=== PATIENT | male | born 1965 | race Asian ===

== ENCOUNTER → 2017-03-02 | Outpatient (CLI) | payer OTHER | END | disposition home or self-care (01) | LOC: LAB 07:25 | PROVIDERS: ATTEND Internal Medicine | DX: E04.1 Nontoxic single thyroid nodule (principal); E78.4 Other hyperlipidemia; I12.9 Hypertensive chronic kidney disease with stage 1 through stage 4 chronic kidney disease, or unspecified chronic kidney disease; N18.9 Chronic kidney disease, unspecified; R73.01 Impaired fasting glucose | CPT/HCPCS: 36415; 80061; 82947; 83036; 84443; 86376; 86800 ==

== ENCOUNTER → 2017-05-10 | Outpatient (CLI) | payer OTHER ==
[2017-05-10 08:16] LABS: ASPARTATE AMINO TRANSFERASE 26 U/L (15-37); BLOOD UREA NITROGEN 17 mg/dL (7-18)
== END | disposition home or self-care (01) ==
LOC: LAB 07:34
PROVIDERS: ATTEND Internal Medicine Nephrology
DX: I12.9 Hypertensive chronic kidney disease with stage 1 through stage 4 chronic kidney disease, or unspecified chronic kidney disease (principal); N18.2 Chronic kidney disease, stage 2 (mild); I25.10 Atherosclerotic heart disease of native coronary artery without angina pectoris; M10.9 Gout, unspecified
CPT/HCPCS: 36415; 80053; 80061; 81003; 82306; 82570; 83735; 83970; 84100; 84156; 84550; 85025

== ENCOUNTER → 2017-12-27 | Outpatient (CLI) | payer OTHER ==
[2017-12-27 09:08] LABS: BASOPHILS # (AUTO) 0.03 x10^3/uL (0-0.1); BASOPHILS % (AUTO) 0 % (0-1); EOSINOPHILS # (AUTO) 0.05 x10^3/uL (0-0.4); EOSINOPHILS % (AUTO) 1 % (1-7); LYMPHOCYTES # (AUTO) 2.68 x10^3/uL (1-3.4); LYMPHOCYTES % (AUTO) 43 % (22-44); MD NO; MEAN CORPUSCULAR HEMOGLOBIN 30.9 pg (27.5-34.5); MEAN CORPUSCULAR HGB CONC 34.1 g/dL (33.2-36.2); MEAN CORPUSCULAR VOLUME 90.8 fL (81-97); MEAN PLATELET VOLUME 7.3 fL (7.4-10.4); MONOCYTES # (AUTO) 0.53 x10^3/uL (0.2-0.8); MONOCYTES % (AUTO) 9 % (2-9); NEUTROPHILS % (AUTO) 47 % (42-75); PLATELET COUNT 213 x10^3/uL (130-400); RED BLOOD COUNT 5.57 x10^6/uL (4.38-5.82); RED CELL DISTRIBUTION WIDTH 12.6 % (9.4-14.8)
[2017-12-27 09:15] LABS: ALANINE AMINOTRANSFERASE 52 U/L (12-78); ALBUMIN 3.9 g/dL (3.4-5.0); ANION GAP 7 mmol/L (5-15); CALCIUM 8.5 mg/dL (8.5-10.1); CHLORIDE 106 mmol/L (98-107); CREATININE 1.37 mg/dL (0.7-1.3)
[2017-12-27 09:17] LABS: ALKALINE PHOSPHATASE 75 U/L (45-117); BILIRUBIN,TOTAL 0.5 mg/dL (0.2-1.0); CHOLESTEROL, TOTAL 135 mg/dL (140-239); HDL CHOL % 33 % (26-37); HDL CHOLESTEROL (DIRECT) 45 mg/dL (40-60); LDL CHOLESTEROL,CALCULATED 53 mg/dL (54-169); LDL/HDL RATIO 1.2 (0.5-3.0); TOTAL PROTEIN 7.5 g/dL (6.4-8.2); TRIGLYCERIDES 183 mg/dL (50-200); VLDL CHOLESTEROL 37 mg/dL (0-25)
[2017-12-27 10:02] LABS: HEMOGLOBIN A1C 5.9 % (4.2-6.3)
== END | disposition home or self-care (01) ==
LOC: LAB 08:48
PROVIDERS: ATTEND Internal Medicine Cardiovascular Disease
DX: E78.00 Pure hypercholesterolemia, unspecified (principal); E78.5 Hyperlipidemia, unspecified; I10 Essential (primary) hypertension
CPT/HCPCS: 36415; 80053; 80061; 83036; 85025

== ENCOUNTER → 2018-03-12 | Outpatient (CLI) | payer OTHER ==
[2018-03-12 09:04] LABS: BASOPHILS # (AUTO) 0.03 x10^3/uL (0-0.1); BASOPHILS % (AUTO) 1 % (0-1); EOSINOPHILS # (AUTO) 0.03 x10^3/uL (0-0.4); EOSINOPHILS % (AUTO) 1 % (1-7); LYMPHOCYTES # (AUTO) 2.08 x10^3/uL (1-3.4); LYMPHOCYTES % (AUTO) 38 % (22-44); MD NO; MEAN CORPUSCULAR HEMOGLOBIN 30.9 pg (27.5-34.5); MEAN CORPUSCULAR HGB CONC 33.7 g/dL (33.2-36.2); MEAN CORPUSCULAR VOLUME 91.9 fL (81-97); MEAN PLATELET VOLUME 7.4 fL (7.4-10.4); MONOCYTES # (AUTO) 0.51 x10^3/uL (0.2-0.8); MONOCYTES % (AUTO) 9 % (2-9); NEUTROPHILS # (AUTO) 2.82 x10^3/uL (1.8-6.8); NEUTROPHILS % (AUTO) 52 % (42-75); PLATELET COUNT 198 x10^3/uL (130-400); RED BLOOD COUNT 5.44 x10^6/uL (4.38-5.82); RED CELL DISTRIBUTION WIDTH 12.6 % (9.4-14.8)
[2018-03-12 09:16] LABS: MICROSCOPIC NOT IND
[2018-03-12 09:19] LABS: ANION GAP 6 mmol/L (5-15); CALCIUM 8.6 mg/dL (8.5-10.1); CHLORIDE 107 mmol/L (98-107); CHOLESTEROL, TOTAL 120 mg/dL (140-239); TRIGLYCERIDES 146 mg/dL (50-200); VLDL CHOLESTEROL 29 mg/dL (0-25)
[2018-03-12 09:23] LABS: % IRON SATURATION 21 % (20-55); ALANINE AMINOTRANSFERASE 50 U/L (12-78); ALKALINE PHOSPHATASE 70 U/L (45-117); BILIRUBIN,TOTAL 0.6 mg/dL (0.2-1.0); CHOL/HDL RATIO 2.7; CREATININE 1.27 mg/dL (0.7-1.3); HDL CHOL % 37 % (26-37); HDL CHOLESTEROL (DIRECT) 44 mg/dL (40-60); HEMOGLOBIN A1C 5.9 % (4.2-6.3); IRON LEVEL 80 mcg/dL (65-175); LDL CHOLESTEROL,CALCULATED 47 mg/dL (54-169); LDL/HDL RATIO 1.1 (0.5-3.0); TOTAL IRON BINDING CAPACITY 376 mcg/dL (250-450); TOTAL PROTEIN 7.6 g/dL (6.4-8.2)
== END | disposition home or self-care (01) ==
LOC: LAB 08:46
PROVIDERS: ATTEND Internal Medicine Nephrology
DX: I25.10 Atherosclerotic heart disease of native coronary artery without angina pectoris (principal); I12.9 Hypertensive chronic kidney disease with stage 1 through stage 4 chronic kidney disease, or unspecified chronic kidney disease; N18.2 Chronic kidney disease, stage 2 (mild); M10.9 Gout, unspecified; R73.01 Impaired fasting glucose; R05 Cough
CPT/HCPCS: 36415; 80053; 80061; 81003; 82306; 82310; 82570; 82728; 83036; 83540; 83550; 83735; 83970; 84100; 84156; 84550; 85025

== ENCOUNTER → 2018-06-12 | Outpatient (CLI) | payer OTHER ==
[2018-06-12 10:29] LABS: BASOPHILS # (AUTO) 0.03 x10^3/uL (0-0.1); BASOPHILS % (AUTO) 1 % (0-1); EOSINOPHILS # (AUTO) 0.02 x10^3/uL (0-0.4); EOSINOPHILS % (AUTO) 0 % (1-7); LYMPHOCYTES # (AUTO) 2.05 x10^3/uL (1-3.4); LYMPHOCYTES % (AUTO) 35 % (22-44); MD NO; MEAN CORPUSCULAR HEMOGLOBIN 31.1 pg (27.5-34.5); MEAN CORPUSCULAR HGB CONC 34.1 g/dL (33.2-36.2); MEAN CORPUSCULAR VOLUME 91.2 fL (81-97); MEAN PLATELET VOLUME 7.5 fL (7.4-10.4); MONOCYTES # (AUTO) 0.46 x10^3/uL (0.2-0.8); MONOCYTES % (AUTO) 8 % (2-9); NEUTROPHILS # (AUTO) 3.33 x10^3/uL (1.8-6.8); NEUTROPHILS % (AUTO) 57 % (42-75); PLATELET COUNT 185 x10^3/uL (130-400); RED BLOOD COUNT 5.72 x10^6/uL (4.38-5.82); RED CELL DISTRIBUTION WIDTH 12.4 % (9.4-14.8)
[2018-06-12 10:41] LABS: ALANINE AMINOTRANSFERASE 48 U/L (12-78); ALBUMIN 4.2 g/dL (3.4-5.0); ANION GAP 7 mmol/L (5-15); CALCIUM 8.8 mg/dL (8.5-10.1); CHLORIDE 106 mmol/L (98-107); CHOLESTEROL, TOTAL 129 mg/dL (140-239); CREATININE 1.44 mg/dL (0.7-1.3)
[2018-06-12 10:44] LABS: ALKALINE PHOSPHATASE 82 U/L (45-117); BILIRUBIN,TOTAL 1.1 mg/dL (0.2-1.0); CHOL/HDL RATIO 2.9; HDL CHOL % 35 % (26-37); HDL CHOLESTEROL (DIRECT) 45 mg/dL (40-60); LDL CHOLESTEROL,CALCULATED 59 mg/dL (54-169); LDL/HDL RATIO 1.3 (0.5-3.0); TOTAL PROTEIN 8.3 g/dL (6.4-8.2); TRIGLYCERIDES 124 mg/dL (50-200); VLDL CHOLESTEROL 25 mg/dL (0-25)
[2018-06-12 12:16] LABS: HEMOGLOBIN A1C 5.8 % (4.2-6.3)
== END | disposition home or self-care (01) ==
LOC: LAB 10:09
PROVIDERS: ATTEND Internal Medicine Cardiovascular Disease
DX: I10 Essential (primary) hypertension (principal); I25.10 Atherosclerotic heart disease of native coronary artery without angina pectoris; K21.9 Gastro-esophageal reflux disease without esophagitis; E04.1 Nontoxic single thyroid nodule; E78.00 Pure hypercholesterolemia, unspecified; E78.4 Other hyperlipidemia; H40.9 Unspecified glaucoma; G47.30 Sleep apnea, unspecified
CPT/HCPCS: 36415; 80053; 80061; 82306; 82550; 82570; 83036; 83735; 83970; 84100; 84153; 84156; 84550; 85025; G0103

== ENCOUNTER → 2018-06-25 | Outpatient (CLI) | payer OTHER | END | disposition home or self-care (01) | LOC: CFH 08:08 | PROVIDERS: ATTEND Internal Medicine Cardiovascular Disease | DX: I25.10 Atherosclerotic heart disease of native coronary artery without angina pectoris (principal) | CPT/HCPCS: 78452; 93017; A9502 ==

== ENCOUNTER → 2018-12-19 | Outpatient (CLI) | payer OTHER ==
[2018-12-19 07:28] LABS: BASOPHILS # (AUTO) 0.03 x10^3/uL (0-0.1); BASOPHILS % (AUTO) 1 % (0-1); EOSINOPHILS # (AUTO) 0.05 x10^3/uL (0-0.4); EOSINOPHILS % (AUTO) 1 % (1-7); LYMPHOCYTES # (AUTO) 2.24 x10^3/uL (1-3.4); LYMPHOCYTES % (AUTO) 38 % (22-44); MD NO; MEAN CORPUSCULAR HEMOGLOBIN 30.9 pg (27.5-34.5); MEAN CORPUSCULAR HGB CONC 33.8 g/dL (33.2-36.2); MEAN CORPUSCULAR VOLUME 91.5 fL (81-97); MEAN PLATELET VOLUME 7.3 fL (7.4-10.4); MONOCYTES # (AUTO) 0.49 x10^3/uL (0.2-0.8); MONOCYTES % (AUTO) 8 % (2-9); NEUTROPHILS # (AUTO) 3.07 x10^3/uL (1.8-6.8); NEUTROPHILS % (AUTO) 52 % (42-75); PLATELET COUNT 198 x10^3/uL (130-400); RED BLOOD COUNT 5.63 x10^6/uL (4.38-5.82); RED CELL DISTRIBUTION WIDTH 12.6 % (9.4-14.8)
[2018-12-19 07:33] LABS: ALANINE AMINOTRANSFERASE 33 U/L (12-78); ALBUMIN 3.9 g/dL (3.4-5.0); ANION GAP 5 mmol/L (5-15); CALCIUM 8.5 mg/dL (8.5-10.1); CHLORIDE 110 mmol/L (98-107); CHOLESTEROL, TOTAL 125 mg/dL (140-239); CREATININE 1.42 mg/dL (0.7-1.3)
[2018-12-19 07:36] LABS: ALKALINE PHOSPHATASE 83 U/L (45-117); BILIRUBIN,TOTAL 0.4 mg/dL (0.2-1.0); HDL CHOLESTEROL (DIRECT) 43 mg/dL (40-60); TOTAL PROTEIN 7.6 g/dL (6.4-8.2); TRIGLYCERIDES 81 mg/dL (50-200); VLDL CHOLESTEROL 16 mg/dL (0-25)
[2018-12-19 07:39] LABS: HEMOGLOBIN A1C 5.6 % (4.2-6.3)
[2018-12-19 08:17] LABS: CHOL/HDL RATIO 2.9; HDL CHOL % 34 % (26-37); LDL CHOLESTEROL,CALCULATED 66 mg/dL (54-169); LDL/HDL RATIO 1.5 (0.5-3.0)
== END | disposition home or self-care (01) ==
LOC: LAB 07:07
PROVIDERS: ATTEND Internal Medicine Cardiovascular Disease
DX: E11.65 Type 2 diabetes mellitus with hyperglycemia (principal); E78.00 Pure hypercholesterolemia, unspecified; I10 Essential (primary) hypertension
CPT/HCPCS: 36415; 80053; 80061; 83036; 85025

== ENCOUNTER → 2019-02-24 | Outpatient (CLI) | payer OTHER ==
[2019-02-24 07:47] LABS: BASOPHILS # (AUTO) 0.04 x10^3/uL (0-0.1); BASOPHILS % (AUTO) 1 % (0-1); EOSINOPHILS # (AUTO) 0.05 x10^3/uL (0-0.4); EOSINOPHILS % (AUTO) 1 % (1-7); LYMPHOCYTES % (AUTO) 41 % (22-44); MD NO; MEAN CORPUSCULAR HEMOGLOBIN 30.1 pg (27.5-34.5); MEAN CORPUSCULAR HGB CONC 32.2 g/dL (33.2-36.2); MEAN CORPUSCULAR VOLUME 93.4 fL (81-97); MEAN PLATELET VOLUME 7.3 fL (7.4-10.4); MONOCYTES # (AUTO) 0.49 x10^3/uL (0.2-0.8); MONOCYTES % (AUTO) 9 % (2-9); NEUTROPHILS # (AUTO) 2.59 x10^3/uL (1.8-6.8); NEUTROPHILS % (AUTO) 48 % (42-75); PLATELET COUNT 195 x10^3/uL (130-400); RED BLOOD COUNT 5.44 x10^6/uL (4.38-5.82); RED CELL DISTRIBUTION WIDTH 12.8 % (9.4-14.8)
[2019-02-24 07:48] LABS: MICROSCOPIC NOT IND
[2019-02-24 07:59] LABS: ALANINE AMINOTRANSFERASE 40 U/L (12-78); ALBUMIN 3.9 g/dL (3.4-5.0); ANION GAP 6 mmol/L (5-15); CALCIUM 8.6 mg/dL (8.5-10.1); CHLORIDE 110 mmol/L (98-107); CREATININE 1.42 mg/dL (0.7-1.3)
[2019-02-24 08:00] LABS: CREATININE,URINE RANDOM 87.3 mg/dL
[2019-02-24 08:04] LABS: ALKALINE PHOSPHATASE 84 U/L (45-117); BILIRUBIN,TOTAL 0.8 mg/dL (0.2-1.0); TOTAL PROTEIN 7.4 g/dL (6.4-8.2)
== END | disposition home or self-care (01) ==
LOC: LAB 07:16
PROVIDERS: ATTEND Physician Assistant
DX: R10.32 Left lower quadrant pain (principal); R35.0 Frequency of micturition; N18.2 Chronic kidney disease, stage 2 (mild)
CPT/HCPCS: 36415; 80053; 81003; 82570; 83735; 84100; 84153; 84156; 84550; 85025

== ENCOUNTER → 2019-02-27 | Outpatient (CLI) | payer OTHER ==
[~2019-02-27] MED LIST: OMNIPAQUE 350 MG/ML, 100ML BOTTLE ONE
== END | disposition home or self-care (01) ==
LOC: CFH 12:57
PROVIDERS: ATTEND Physician Assistant
DX: N28.1 Cyst of kidney, acquired (principal); K76.89 Other specified diseases of liver
CPT/HCPCS: 74177; Q9967

== ENCOUNTER → 2019-08-25 | Outpatient (CLI) | payer OTHER ==
[2019-08-25 07:33] LABS: BASOPHILS # (AUTO) 0.02 x10^3/uL (0-0.1); BASOPHILS % (AUTO) 0 % (0-1); EOSINOPHILS # (AUTO) 0.03 x10^3/uL (0-0.4); EOSINOPHILS % (AUTO) 1 % (1-7); LYMPHOCYTES # (AUTO) 1.93 x10^3/uL (1-3.4); LYMPHOCYTES % (AUTO) 41 % (22-44); MD NO; MEAN CORPUSCULAR HEMOGLOBIN 31.5 pg (27.5-34.5); MEAN CORPUSCULAR HGB CONC 33.6 g/dL (33.2-36.2); MEAN CORPUSCULAR VOLUME 93.7 fL (81-97); MEAN PLATELET VOLUME 7.2 fL (7.4-10.4); MONOCYTES # (AUTO) 0.41 x10^3/uL (0.2-0.8); MONOCYTES % (AUTO) 9 % (2-9); NEUTROPHILS % (AUTO) 49 % (42-75); PLATELET COUNT 197 x10^3/uL (130-400); RED BLOOD COUNT 5.44 x10^6/uL (4.38-5.82); RED CELL DISTRIBUTION WIDTH 12.2 % (9.4-14.8)
[2019-08-25 07:54] LABS: MICROSCOPIC NOT IND
[2019-08-25 08:50] LABS: ALANINE AMINOTRANSFERASE 41 U/L (12-78); ALBUMIN 3.8 g/dL (3.4-5.0); ANION GAP 6 mmol/L (5-15); CALCIUM 8.3 mg/dL (8.5-10.1); CHLORIDE 109 mmol/L (98-107); CREATININE 1.35 mg/dL (0.7-1.3)
[2019-08-25 08:53] LABS: ALKALINE PHOSPHATASE 75 U/L (45-117); BILIRUBIN,TOTAL 0.6 mg/dL (0.2-1.0); TOTAL PROTEIN 7.4 g/dL (6.4-8.2)
[2019-08-25 10:36] LABS: CALCIUM 8.3 mg/dL (8.5-10.1)
== END | disposition home or self-care (01) ==
LOC: LAB 06:55
PROVIDERS: ATTEND Nurse Practitioner
DX: I12.9 Hypertensive chronic kidney disease with stage 1 through stage 4 chronic kidney disease, or unspecified chronic kidney disease (principal); N18.2 Chronic kidney disease, stage 2 (mild); I25.10 Atherosclerotic heart disease of native coronary artery without angina pectoris; M10.9 Gout, unspecified; R73.01 Impaired fasting glucose; R05 Cough
CPT/HCPCS: 36415; 80053; 81003; 82306; 82310; 82570; 83735; 83970; 84100; 84156; 84550; 85025

== ENCOUNTER → 2019-11-27 | Outpatient (CLI) | payer OTHER | END | disposition home or self-care (01) | LOC: RAD 08:46 | PROVIDERS: ATTEND Otolaryngology | DX: R13.19 Other dysphagia (principal); R09.89 Other specified symptoms and signs involving the circulatory and respiratory systems | CPT/HCPCS: 74220 ==

== ENCOUNTER → 2019-12-20 | Outpatient (CLI) | payer OTHER ==
[2019-12-20 07:27] LABS: BASOPHILS # (AUTO) 0.03 x10^3/uL (0-0.1); BASOPHILS % (AUTO) 1 % (0-1); EOSINOPHILS # (AUTO) 0.06 x10^3/uL (0-0.4); EOSINOPHILS % (AUTO) 1 % (1-7); LYMPHOCYTES # (AUTO) 1.83 x10^3/uL (1-3.4); LYMPHOCYTES % (AUTO) 31 % (22-44); MD NO; MEAN CORPUSCULAR HEMOGLOBIN 31.7 pg (27.5-34.5); MEAN CORPUSCULAR HGB CONC 33.6 g/dL (33.2-36.2); MEAN CORPUSCULAR VOLUME 94.3 fL (81-97); MEAN PLATELET VOLUME 6.9 fL (7.4-10.4); MONOCYTES % (AUTO) 9 % (2-9); NEUTROPHILS # (AUTO) 3.47 x10^3/uL (1.8-6.8); NEUTROPHILS % (AUTO) 59 % (42-75); PLATELET COUNT 205 x10^3/uL (130-400); RED BLOOD COUNT 5.19 x10^6/uL (4.38-5.82); RED CELL DISTRIBUTION WIDTH 12.5 % (9.4-14.8)
[2019-12-20 10:22] LABS: ALBUMIN 3.7 g/dL (3.4-5.0); ANION GAP 5 mmol/L (5-15); CALCIUM 8.7 mg/dL (8.5-10.1); CHLORIDE 111 mmol/L (98-107)
[2019-12-20 10:25] LABS: ALANINE AMINOTRANSFERASE 50 U/L (12-78); ALKALINE PHOSPHATASE 89 U/L (45-117); BILIRUBIN,TOTAL 0.4 mg/dL (0.2-1.0); CHOL/HDL RATIO 4.1; CHOLESTEROL, TOTAL 126 mg/dL (140-239); HDL CHOL % 25 % (26-37); HDL CHOLESTEROL (DIRECT) 31 mg/dL (40-60); LDL CHOLESTEROL,CALCULATED 51 mg/dL (54-169); LDL/HDL RATIO 1.6 (0.5-3.0); TOTAL PROTEIN 7.5 g/dL (6.4-8.2); TRIGLYCERIDES 220 mg/dL (50-200); VLDL CHOLESTEROL 44 mg/dL (0-25)
== END | disposition home or self-care (01) ==
LOC: LAB 06:57
PROVIDERS: ATTEND Internal Medicine Cardiovascular Disease
DX: E78.00 Pure hypercholesterolemia, unspecified (principal); G47.30 Sleep apnea, unspecified; I13.10 Hypertensive heart and chronic kidney disease without heart failure, with stage 1 through stage 4 chronic kidney disease, or unspecified chronic kidney disease; I25.10 Atherosclerotic heart disease of native coronary artery without angina pectoris; N18.3 Chronic kidney disease, stage 3 (moderate); I25.2 Old myocardial infarction; L30.9 Dermatitis, unspecified; M10.9 Gout, unspecified; N40.1 Benign prostatic hyperplasia with lower urinary tract symptoms
CPT/HCPCS: 36415; 80053; 80061; 83036; 85025

== ENCOUNTER 2020-01-20 13:11 | Observation (INO) | payer OTHER ==
[~2020-01-20] VITALS: Ht 170.2 cm; Wt 82.1 kg
--- NOTE | 2020-01-20 13:44 | NUR ---
SUDDEN ONSET OF EPIGASTRIC PAIN RADIATING TO BACK X 2 DAYS. 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
[2020-01-20] MEDS ORDERED: MAALOX/HYOSCYAMINE/LIDOCAINE 45 ML BTL PO ONE (14:00)
[2020-01-20] MEDS ORDERED: SODIUM CHLORIDE FLUSH 10ML SYR IVF ONE (14:00)
[2020-01-20] MEDS ORDERED: FAMOTIDINE 20 MG/2 ML IVPush ONE (14:00)
[2020-01-20 14:14] LABS: BASOPHILS # (AUTO) 0.04 x10^3/uL (0-0.1); BASOPHILS % (AUTO) 1 % (0-1); EOSINOPHILS # (AUTO) 0.04 x10^3/uL (0-0.4); EOSINOPHILS % (AUTO) 1 % (1-7); LYMPHOCYTES # (AUTO) 2.25 x10^3/uL (1-3.4); LYMPHOCYTES % (AUTO) 35 % (22-44); MD NO; MEAN CORPUSCULAR HEMOGLOBIN 31.1 pg (27.5-34.5); MEAN CORPUSCULAR HGB CONC 33.3 g/dL (33.2-36.2); MEAN CORPUSCULAR VOLUME 93.4 fL (81-97); MEAN PLATELET VOLUME 7.5 fL (7.4-10.4); MONOCYTES # (AUTO) 0.47 x10^3/uL (0.2-0.8); MONOCYTES % (AUTO) 7 % (2-9); NEUTROPHILS # (AUTO) 3.57 x10^3/uL (1.8-6.8); NEUTROPHILS % (AUTO) 56 % (42-75); PLATELET COUNT 184 x10^3/uL (130-400); RED BLOOD COUNT 5.62 x10^6/uL (4.38-5.82); RED CELL DISTRIBUTION WIDTH 12.4 % (9.4-14.8)
[2020-01-20] MEDS ORDERED: MAALOX/HYOSCYAMINE/LIDOCAINE 45 ML BTL ONE (14:17)
[2020-01-20 14:25] LABS: ALANINE AMINOTRANSFERASE 51 U/L (12-78); ALBUMIN 4.1 g/dL (3.4-5.0); ANION GAP 7 mmol/L (5-15); CALCIUM 9.2 mg/dL (8.5-10.1); CHLORIDE 107 mmol/L (98-107); CREATININE 1.41 mg/dL (0.7-1.3)
--- NOTE | 2020-01-20 14:25 | NUR ---
MEDICATED PER EMAR CXR AT BEDSIDE AT 1420
[2020-01-20 14:29] LABS: ALKALINE PHOSPHATASE 82 U/L (45-117); BILIRUBIN,TOTAL 0.6 mg/dL (0.2-1.0); TOTAL PROTEIN 7.8 g/dL (6.4-8.2); TROPONIN I < 0.015 ng/mL (0.000-0.045)
--- NOTE | 2020-01-20 14:59 | NUR ---
WITH REASSEMENT PATIENT REPORTS PAIN IMPROVED TO 2/10 VSS ON FIRE [facility]ARD[facility] POC REVIEWED-TO BE ADMITTED FOR CARDIAC WORKUP (HX OF [place]) US AT BEDSIDE AT 4220
[2020-01-20] MEDS ORDERED: NITROGLYCERIN 0.4 MG BOTTLE (25 TABS) SL PRN (15:30)
[2020-01-20] MEDS ORDERED: BACLOFEN 10 MG TABLET PO PRN (15:30)
[2020-01-20] MEDS ORDERED: SODIUM CHLORIDE FLUSH 10ML SYR IVF PRN (15:30)
[2020-01-20] MEDS ORDERED: GABAPENTIN 300 MG CAPSULE PO PRN (15:30)
[2020-01-20] MEDS ORDERED: NITROGLYCERIN 0.4 MG/SPRAY SL PRN (15:30)
[2020-01-20] MEDS ORDERED: morphine SULFATE 10 MG/ML, 1ML IV PRN (15:30)
[2020-01-20] MEDS ORDERED: morphine SULFATE 10 MG/ML, 1ML IVPush PRN (15:30)
[2020-01-20] MEDS ORDERED: ACETAMINOPHEN 325 MG TABLET PO PRN (15:30)
--- NOTE | 2020-01-20 15:51 | NUR ---
TASK RN: IV ESTABLISHED. MEDICATIONS REQUESTED FROM PHARMACY. BP/SPO2/ECG MONITORING IN PLACE. SINUS MAGDY ON MONITOR. PT REPORTS IMPROVED S/S SINCE GI COCKTAIL
--- NOTE | 2020-01-20 15:59 | NUR ---
TASK RN: REPORT TO JESSICA HAMILTON. PT PREPARED FOR TRANSPORT Addendum: 01/20/20 at 1601 by RASHMI PEPMAYELIN NOT YET ARRIVED. FLOOR RN AWARE.
[2020-01-20] MEDS ORDERED: TRAZODONE 50MG TABLET PO PRN (16:00)
[2020-01-20 16:05] LABS: CHOL/HDL RATIO 3.6; LDL/HDL RATIO 1.7 (0.5-3.0)
[2020-01-20] MEDS ORDERED: FAMOTIDINE 20 MG/2 ML ONE (16:08)
--- NOTE | 2020-01-20 16:13 | NUR ---
PATIENT TRANSFERRED TO FLOOR AT 1610 MEDICATION (PEPCID IV) OBTAINED BUT NOT ADMINISTERED PATIENT WAS ALREADY MID TRANSFER (IN HALLWAY)
[2020-01-20 17:07] VITALS: BP 132/85
[2020-01-20] MEDS ORDERED: LISI-170 PO (17:07)
[2020-01-20] MEDS ORDERED: TIMO5DRO33 EACHEYE (17:07)
[2020-01-20] MEDS ORDERED: ICOS1CAP PO (17:07)
[2020-01-20] MEDS ORDERED: METO-93 PO (17:07)
[2020-01-20] MEDS ORDERED: LATA2.5D3 EACHEYE (17:07)
[2020-01-20] MEDS ORDERED: MAALOX/HYOSCYAMINE/LIDOCAINE 45 ML BTL PO PRN (19:00)
[2020-01-20 19:34] VITALS: BP 138/79
[2020-01-20] MEDS: SODIUM CHLORIDE FLUSH 10ML SYR IVF SCH (20:18)
[2020-01-20 21:26] LABS: TROPONIN I < 0.015 ng/mL (0.000-0.045)
[2020-01-21 01:19] VITALS: BP 108/64
[2020-01-21 03:34] LABS: TROPONIN I < 0.015 ng/mL (0.000-0.045)
[2020-01-21 05:25] VITALS: BP 114/75
[2020-01-21] MEDS ORDERED: METOPROLOL SUCCINATE 50 MG TAB.ER.24H PO SCH (06:00)
[2020-01-21] MEDS ORDERED: PANTOPRAZOLE 20MG TABLET PO SCH (06:00)
[2020-01-21] MEDS ORDERED: ASPIRIN 325 MG TABLET EC PO SCH (06:00)
[2020-01-21 07:30] VITALS: BP 104/68
[2020-01-21] MEDS ORDERED: REGADENOSON 0.4 MG/5 ML SYRINGE ONE (08:06)
[2020-01-21] MEDS: SODIUM CHLORIDE FLUSH 10ML SYR IVF SCH (08:33)
[2020-01-21] MEDS ORDERED: LISINOPRIL 20 MG TABLET PO SCH (09:00)
[2020-01-21] MEDS ORDERED: SUCR1TAB PO (14:04)
[2020-01-21] MEDS ORDERED: OMEP-110 PO (14:04)
== END 2020-01-21 15:40 | disposition home or self-care (01) ==
LOC: ED 14:10 → EDIP 15:19 → INTOOBSV 15:19 → 5SO 16:16
PROVIDERS: ADMIT Hospitalist; ATTEND Family Medicine
DX: R07.9 Chest pain, unspecified (principal); G47.33 Obstructive sleep apnea (adult) (pediatric); G47.00 Insomnia, unspecified; I25.110 Atherosclerotic heart disease of native coronary artery with unstable angina pectoris; I73.9 Peripheral vascular disease, unspecified; I12.9 Hypertensive chronic kidney disease with stage 1 through stage 4 chronic kidney disease, or unspecified chronic kidney disease; I25.2 Old myocardial infarction; N18.3 Chronic kidney disease, stage 3 (moderate); K76.0 Fatty (change of) liver, not elsewhere classified; I51.7 Cardiomegaly; Z79.899 Other long term (current) drug therapy
CPT/HCPCS: 36415; 71045; 76700; 78452; 80053; 80061; 83036; 83605; 83880; 84484; 85025; 93005; 93017; 93306; 93356; 99285; A9502; G0378; J2785

== ENCOUNTER 2020-01-27 15:40 | Emergency (ER) | payer OTHER ==
[~2020-01-27] VITALS: Ht 170.2 cm; Wt 81.1 kg
[~2020-01-27 15:40] MED LIST changes: +ICOS1CAP PO; +LATA2.5D3 EACHEYE; +LISI-170 PO; +METO-93 PO; +OMEP-110 PO; -OMNIPAQUE 350 MG/ML, 100ML BOTTLE ONE; +SUCR1TAB PO; +TIMO5DRO33 EACHEYE
[2020-01-27] MEDS ORDERED: [UNRECOGNIZED DRUG - CODE] (16:02)
[2020-01-27] MEDS ORDERED: MAALOX/HYOSCYAMINE/LIDOCAINE 45 ML BTL ONE ×2 (16:08→16:10)
--- NOTE | 2020-01-27 16:19 | NUR ---
pt to ed for right sided cp starting 2 hours ago. pt connected to all monitors. vss. Dr. Lopez to bs for assessment. orders received. labs drawn. xr complete. medication administered. at this time, pt would like to defer piv insertion until it is needed.
[2020-01-27 16:26] LABS: BASOPHILS # (AUTO) 0.02 x10^3/uL (0-0.1); BASOPHILS % (AUTO) 0 % (0-1); EOSINOPHILS # (AUTO) 0.02 x10^3/uL (0-0.4); EOSINOPHILS % (AUTO) 0 % (1-7); LYMPHOCYTES # (AUTO) 2.13 x10^3/uL (1-3.4); LYMPHOCYTES % (AUTO) 37 % (22-44); MD NO; MEAN CORPUSCULAR HEMOGLOBIN 31.2 pg (27.5-34.5); MEAN CORPUSCULAR HGB CONC 33.6 g/dL (33.2-36.2); MEAN PLATELET VOLUME 7.6 fL (7.4-10.4); MONOCYTES # (AUTO) 0.58 x10^3/uL (0.2-0.8); MONOCYTES % (AUTO) 10 % (2-9); NEUTROPHILS # (AUTO) 3.01 x10^3/uL (1.8-6.8); NEUTROPHILS % (AUTO) 52 % (42-75); PLATELET COUNT 194 x10^3/uL (130-400); RED BLOOD COUNT 5.43 x10^6/uL (4.38-5.82); RED CELL DISTRIBUTION WIDTH 12.5 % (9.4-14.8)
[2020-01-27 16:30] LABS: ALANINE AMINOTRANSFERASE 51 U/L (12-78); ALBUMIN 4.2 g/dL (3.4-5.0); ANION GAP 4 mmol/L (5-15); CALCIUM 9.3 mg/dL (8.5-10.1); CHLORIDE 105 mmol/L (98-107); CREATININE 1.56 mg/dL (0.7-1.3)
[2020-01-27] MEDS ORDERED: MAALOX/HYOSCYAMINE/LIDOCAINE 45 ML BTL PO ONE (16:30)
[2020-01-27 16:35] LABS: ALKALINE PHOSPHATASE 76 U/L (45-117); BILIRUBIN,TOTAL 0.8 mg/dL (0.2-1.0); TOTAL PROTEIN 7.9 g/dL (6.4-8.2); TROPONIN I < 0.015 ng/mL (0.000-0.045)
--- NOTE | 2020-01-27 16:46 | NUR ---
all results back at this time. chart up for recheck.
[2020-01-27] MEDS ORDERED: SODIUM CHLORIDE FLUSH 10ML SYR IVF ONE (17:00)
[2020-01-27 17:33] VITALS: BP 118/71
--- NOTE | 2020-01-27 17:58 | NUR ---
PT RESTING IN ROOM. VSS. NO NEEDS EXRESSED. REPEAT EKG DONE. AWAITING RECHECK.
== END 2020-01-27 18:29 | disposition home or self-care (01) ==
LOC: ED 16:42
DX: R07.89 Other chest pain (principal); R94.31 Abnormal electrocardiogram [ECG] [EKG]; E78.5 Hyperlipidemia, unspecified; E78.00 Pure hypercholesterolemia, unspecified; K21.9 Gastro-esophageal reflux disease without esophagitis; I12.9 Hypertensive chronic kidney disease with stage 1 through stage 4 chronic kidney disease, or unspecified chronic kidney disease; N18.9 Chronic kidney disease, unspecified; I25.2 Old myocardial infarction; G47.30 Sleep apnea, unspecified
CPT/HCPCS: 36415; 71045; 80053; 83690; 83880; 84484; 85025; 93005; 99285

== ENCOUNTER 2020-02-04 09:37 | Emergency (ER) | payer OTHER ==
[~2020-02-04] VITALS: Ht 170.2 cm; Wt 81.1 kg
[~2020-02-04 09:37] MED LIST changes: +[UNRECOGNIZED DRUG - CODE]
--- NOTE | 2020-02-04 10:06 | NUR ---
PT STATES HE HAS BEEN GETTING DIZZY SINCE HE HAS BEEN TAKING METOPROLOL, HE HAD BEEN ADVISED BY DR REARDON TO LOWER DOSE. SECOND DAY OF TAKING LOWER DOSE. PT ALSO C/O CP STARTING AT 0800 THIS AM, WITH SOB. PT TO BP, CARD MONITOR, CONT PULSE OX
[2020-02-04] MEDS ORDERED: MAALOX/HYOSCYAMINE/LIDOCAINE 45 ML BTL ONE (10:09)
[2020-02-04] MEDS ORDERED: NITROGLYCERIN SINGLE TAB 0.4 MG SL PRN (10:30)
[2020-02-04] MEDS ORDERED: SODIUM CHLORIDE FLUSH 10ML SYR IVF ONE (10:30)
[2020-02-04] MEDS ORDERED: MAALOX/HYOSCYAMINE/LIDOCAINE 45 ML BTL PO ONE (10:30)
[2020-02-04 10:35] LABS: BASOPHILS # (AUTO) 0.03 x10^3/uL (0-0.1); BASOPHILS % (AUTO) 1 % (0-1); EOSINOPHILS # (AUTO) 0.03 x10^3/uL (0-0.4); EOSINOPHILS % (AUTO) 1 % (1-7); LYMPHOCYTES # (AUTO) 1.57 x10^3/uL (1-3.4); LYMPHOCYTES % (AUTO) 31 % (22-44); MD NO; MEAN CORPUSCULAR HEMOGLOBIN 31.5 pg (27.5-34.5); MEAN CORPUSCULAR HGB CONC 34.2 g/dL (33.2-36.2); MEAN PLATELET VOLUME 7.5 fL (7.4-10.4); MONOCYTES # (AUTO) 0.42 x10^3/uL (0.2-0.8); MONOCYTES % (AUTO) 8 % (2-9); NEUTROPHILS # (AUTO) 3.01 x10^3/uL (1.8-6.8); NEUTROPHILS % (AUTO) 60 % (42-75); PLATELET COUNT 191 x10^3/uL (130-400); RED BLOOD COUNT 5.25 x10^6/uL (4.38-5.82); RED CELL DISTRIBUTION WIDTH 12.1 % (9.4-14.8)
[2020-02-04 10:47] LABS: ALANINE AMINOTRANSFERASE 41 U/L (12-78); ALBUMIN 3.8 g/dL (3.4-5.0); ANION GAP 5 mmol/L (5-15); CALCIUM 8.9 mg/dL (8.5-10.1); CHLORIDE 108 mmol/L (98-107); CREATININE 1.28 mg/dL (0.7-1.3)
[2020-02-04 10:52] LABS: ALKALINE PHOSPHATASE 73 U/L (45-117); BILIRUBIN,TOTAL 0.9 mg/dL (0.2-1.0); TOTAL PROTEIN 7.4 g/dL (6.4-8.2); TROPONIN I < 0.015 ng/mL (0.000-0.045)
[2020-02-04 11:17] VITALS: BP 123/72
--- NOTE | 2020-02-04 11:17 | NUR ---
PT REPORTS MUCH RELIEF FROM GI COCKTAIL, VSS. ERMD UPDATED
== END 2020-02-04 12:06 | disposition home or self-care (01) ==
LOC: ED 10:15
DX: R07.89 Other chest pain (principal); K21.9 Gastro-esophageal reflux disease without esophagitis; E78.5 Hyperlipidemia, unspecified; I12.9 Hypertensive chronic kidney disease with stage 1 through stage 4 chronic kidney disease, or unspecified chronic kidney disease; N18.9 Chronic kidney disease, unspecified; I25.2 Old myocardial infarction
CPT/HCPCS: 36415; 71045; 80053; 83690; 84484; 85025; 93005; 99285

== ENCOUNTER 2020-10-12 15:17 | Emergency (ER) | payer OTHER ==
[~2020-10-12] VITALS: Ht 170.2 cm; Wt 82.1 kg
[~2020-10-12 15:17] MED LIST changes: -LATA2.5D3 EACHEYE; +LATA2.5D4 EACHEYE
[2020-10-12 16:24] LABS: BASOPHILS % (AUTO) 1 % (0-1); EOSINOPHILS % (AUTO) 1 % (1-7); LYMPHOCYTES % (AUTO) 38 % (22-44); MEAN CORPUSCULAR HEMOGLOBIN 31.7 pg (27.5-34.5); MEAN CORPUSCULAR HGB CONC 34.6 g/dL (33.2-36.2); MEAN PLATELET VOLUME 7.5 fL (7.4-10.4); MONOCYTES % (AUTO) 10 % (2-9); NEUTROPHILS % (AUTO) 51 % (42-75); PLATELET COUNT 181 x10^3/uL (130-400); RED BLOOD COUNT 5.41 x10^6/uL (4.38-5.82); RED CELL DISTRIBUTION WIDTH 12.8 % (9.4-14.8)
[2020-10-12 16:27] LABS: MD NO
[2020-10-12 16:36] LABS: ALBUMIN 4.2 g/dL (3.4-5.0); CALCIUM 9.1 mg/dL (8.5-10.1); CHLORIDE 107 mmol/L (98-107)
[2020-10-12 16:42] LABS: ALANINE AMINOTRANSFERASE 47 U/L (12-78); ALKALINE PHOSPHATASE 75 U/L (45-117); BILIRUBIN,TOTAL 0.8 mg/dL (0.2-1.0); CREATININE 1.33 mg/dL (0.7-1.3); TROPONIN I < 0.015 ng/mL (0.000-0.045)
[2020-10-12 16:48] LABS: ANION GAP 4 mmol/L (5-15)
[2020-10-12 16:51] VITALS: BP 141/85
== END 2020-10-12 17:49 | disposition home or self-care (01) ==
LOC: ED 17:40
DX: R07.89 Other chest pain (principal); I10 Essential (primary) hypertension; I25.2 Old myocardial infarction; E78.5 Hyperlipidemia, unspecified
CPT/HCPCS: 36415; 71045; 80053; 83690; 84484; 85025; 93005; 99285

== ENCOUNTER → 2021-01-06 | Outpatient (CLI) | payer OTHER ==
[~2021-01-06] MED LIST changes: +OMNIPAQUE 350 MG/ML, 75ML BOTTLE ONE
== END | disposition home or self-care (01) ==
LOC: CFH 08:27 → EDSTATUS 09:00
PROVIDERS: ATTEND Internal Medicine
DX: J32.0 Chronic maxillary sinusitis (principal); M26.642 Arthritis of left temporomandibular joint
CPT/HCPCS: 70487; Q9967; 82565

== ENCOUNTER 2021-01-19 14:43 | Emergency (ER) | payer OTHER ==
[~2021-01-19] VITALS: Ht 170.2 cm; Wt 81.9 kg
[~2021-01-19 14:43] MED LIST changes: -OMNIPAQUE 350 MG/ML, 75ML BOTTLE ONE
[2021-01-19] MEDS ORDERED: DOXY100T PO (14:56)
--- NOTE | 2021-01-19 15:07 | NUR ---
THIS AFTERNOON PT STARTED HAVING CHEST TIGHTNESS AND NUMBNESS IN BILATERAL ARMS AND HANDS. PT STATES HE ALSO HAS NAUSEA. DIEGO ODONNELL AT BEDSIDE FOR EVALUATION. PT POSTIONED TO COMFORT, ATTACHED TO ALL MONITORS, BRENDA RAYMUNDO
[2021-01-19] MEDS ORDERED: ASPIRIN 81 MG TABLET CHEW ONE (15:16)
[2021-01-19] MEDS ORDERED: LORazepam 2 MG/ML, 1ML ONE (15:18)
[2021-01-19] MEDS ORDERED: LORazepam 2 MG/ML, 1ML IVPush ONE (15:30)
[2021-01-19 15:48] LABS: BASOPHILS % (AUTO) 1 % (0-1); EOSINOPHILS % (AUTO) 1 % (1-7); LYMPHOCYTES % (AUTO) 30 % (22-44); MEAN CORPUSCULAR HEMOGLOBIN 31.5 pg (27.5-34.5); MEAN CORPUSCULAR HGB CONC 34.6 g/dL (33.2-36.2); MEAN PLATELET VOLUME 7.4 fL (7.4-10.4); MONOCYTES % (AUTO) 11 % (2-9); NEUTROPHILS % (AUTO) 58 % (42-75); PLATELET COUNT 172 x10^3/uL (130-400); RED BLOOD COUNT 5.61 x10^6/uL (4.38-5.82); RED CELL DISTRIBUTION WIDTH 12.9 % (9.4-14.8)
[2021-01-19 15:49] LABS: MD NO
[2021-01-19 15:51] LABS: ALANINE AMINOTRANSFERASE 56 U/L (12-78); ANION GAP 5 mmol/L (5-15); CALCIUM 8.8 mg/dL (8.5-10.1); CHLORIDE 105 mmol/L (98-107)
[2021-01-19 15:56] LABS: ALKALINE PHOSPHATASE 79 U/L (45-117); BILIRUBIN,TOTAL 0.7 mg/dL (0.2-1.0); CREATININE 1.37 mg/dL (0.7-1.3); TOTAL PROTEIN 7.9 g/dL (6.4-8.2); TROPONIN I < 0.015 ng/mL (0.000-0.045)
[2021-01-19] MEDS ORDERED: SODIUM CHLORIDE FLUSH 10ML SYR IVF ONE (16:00)
[2021-01-19] MEDS ORDERED: ASPIRIN 81 MG TABLET CHEW PO ONE (16:00)
--- NOTE | 2021-01-19 16:49 | NUR ---
trending trops. pt resting in bed comfortably, sebas.
--- NOTE | 2021-01-19 17:18 | NUR ---
pt resting comfortably, awaiting lab, vss, nadn.
[2021-01-19 18:24] LABS: TROPONIN I < 0.015 ng/mL (0.000-0.045)
[2021-01-19 18:45] VITALS: BP 120/70
== END 2021-01-19 18:47 | disposition home or self-care (01) ==
LOC: ED 15:27
DX: R07.89 Other chest pain (principal); F41.1 Generalized anxiety disorder; R10.9 Unspecified abdominal pain; I13.10 Hypertensive heart and chronic kidney disease without heart failure, with stage 1 through stage 4 chronic kidney disease, or unspecified chronic kidney disease; N18.9 Chronic kidney disease, unspecified; N17.9 Acute kidney failure, unspecified; I25.2 Old myocardial infarction; E78.5 Hyperlipidemia, unspecified
CPT/HCPCS: 36415; 71045; 80053; 83690; 84484; 85025; 93005; 96374; 99285; J2060

== ENCOUNTER → 2021-02-11 | Outpatient (CLI) | payer OTHER ==
[~2021-02-11] MED LIST changes: +DOXY100T PO
== END | disposition home or self-care (01) ==
LOC: CFH 08:20
PROVIDERS: ATTEND Registered Nurse
DX: I10 Essential (primary) hypertension (principal); I25.10 Atherosclerotic heart disease of native coronary artery without angina pectoris; E11.9 Type 2 diabetes mellitus without complications; Z77.098 Contact with and (suspected) exposure to other hazardous, chiefly nonmedicinal, chemicals
CPT/HCPCS: 78452; 93017; A9502

== ENCOUNTER 2021-05-10 17:38 | Emergency (ER) | payer OTHER ==
[~2021-05-10] VITALS: Ht 170.2 cm; Wt 83.0 kg
[2021-05-10] MEDS ORDERED: ASPIRIN 81 MG TABLET CHEW PO ONE (19:30)
--- NOTE | 2021-05-10 19:48 | NUR ---
vacation guide: Pt ambulatory to room from lobby at this time.
[2021-05-10 20:01] LABS: BASOPHILS % (AUTO) 1 % (0-1); EOSINOPHILS % (AUTO) 1 % (1-7); LYMPHOCYTES % (AUTO) 33 % (22-44); MEAN CORPUSCULAR HEMOGLOBIN 31.2 pg (27.5-34.5); MEAN CORPUSCULAR HGB CONC 34.1 g/dL (33.2-36.2); MEAN PLATELET VOLUME 7.5 fL (7.4-10.4); MONOCYTES % (AUTO) 9 % (2-9); NEUTROPHILS % (AUTO) 56 % (42-75); PLATELET COUNT 198 x10^3/uL (130-400); RED BLOOD COUNT 5.66 x10^6/uL (4.38-5.82); RED CELL DISTRIBUTION WIDTH 12.8 % (9.4-14.8)
[2021-05-10] MEDS ORDERED: ASPIRIN 81 MG TABLET CHEW ONE (20:03)
[2021-05-10 20:08] LABS: ALANINE AMINOTRANSFERASE 72 U/L (12-78); ALBUMIN 4.2 g/dL (3.4-5.0); ANION GAP 5 mmol/L (5-15); CALCIUM 9.7 mg/dL (8.5-10.1); CHLORIDE 106 mmol/L (98-107); CREATININE 1.36 mg/dL (0.7-1.3)
[2021-05-10 20:13] LABS: ALKALINE PHOSPHATASE 71 U/L (45-117); BILIRUBIN,TOTAL 0.7 mg/dL (0.2-1.0); TOTAL PROTEIN 8.4 g/dL (6.4-8.2); TROPONIN I < 0.015 ng/mL (0.000-0.045)
[2021-05-10 21:13] VITALS: BP 120/76
--- NOTE | 2021-05-10 21:16 | NUR ---
Patient/Caregiver given discharge instructions and they have confirmed that they understand the instructions. Patient ambulatory with steady gait. NAD, all questions answered appropriately, denies additional needs at this time. No personal belongings left in room after discharge.
== END 2021-05-10 21:18 | disposition home or self-care (01) ==
LOC: ED 20:40
DX: M25.512 Pain in left shoulder (principal); R51.9 Headache, unspecified; R94.31 Abnormal electrocardiogram [ECG] [EKG]; I12.9 Hypertensive chronic kidney disease with stage 1 through stage 4 chronic kidney disease, or unspecified chronic kidney disease; N18.9 Chronic kidney disease, unspecified; I25.2 Old myocardial infarction; I11.9 Hypertensive heart disease without heart failure; E78.5 Hyperlipidemia, unspecified; I25.10 Atherosclerotic heart disease of native coronary artery without angina pectoris
CPT/HCPCS: 36415; 71045; 80053; 84484; 85025; 93005; 99285

== ENCOUNTER → 2021-05-13 | Outpatient (CLI) | payer OTHER | END | disposition home or self-care (01) | LOC: CFH 14:16 | PROVIDERS: ATTEND Nurse Practitioner Family | DX: R19.00 Intra-abdominal and pelvic swelling, mass and lump, unspecified site (principal) | CPT/HCPCS: 76705 ==

== ENCOUNTER → 2021-06-01 | Outpatient (CLI) | payer OTHER | END | disposition home or self-care (01) | LOC: CFH 15:33 | PROVIDERS: ATTEND Physician Assistant | DX: R22.1 Localized swelling, mass and lump, neck (principal) | CPT/HCPCS: 76536 ==